=== PATIENT | male | born 1945 | race Caucasian/White ===

== ENCOUNTER 2024-08-23 16:19 | Emergency (ER) | payer OTHER ==
[2024-08-23 16:35] VITALS: BP 123/63; PULSE 69; RESP 16; TEMP 98.6; BMI 22.8
[2024-08-23] MEDS ORDERED: DIPHTH,PERTUSS(ACELL),TET 0.5 ML DISP.SYRIN IM ONE (17:14)
[2024-08-23] MEDS: DIPHTH,PERTUSS(ACELL),TET 0.5 ML DISP.SYRIN IM ONE (17:17)
[2024-08-23] MEDS ORDERED: BACITRACIN 0.9 GM PACKET ONE (17:57)
[2024-08-23] MEDS: BACITRACIN ZINC 15 GM TUBE TOPICAL OINTMENT TP ONE (17:59)
== END 2024-08-23 18:22 | disposition home or self-care (01) ==
LOC: JER 16:19
PROC: 0HQGXZZ Repair Left Hand Skin, External Approach (ICD-10-PCS; principal; 2024-08-23)
PROC: 3E0234Z Introduction of Serum, Toxoid and Vaccine into Muscle, Percutaneous Approach (ICD-10-PCS; 2024-08-23)
DX: S61.412A Laceration without foreign body of left hand, initial encounter (principal); Z23 Encounter for immunization; W26.0XXA Contact with knife, initial encounter; Y93.G1 Activity, food preparation and clean up
CPT/HCPCS: 12002-25; 90471; 90715; 99284-25